=== PATIENT | male | born 2000 | race Caucasian/White ===

== ENCOUNTER 2018-06-25 02:36 | Emergency (ER) | payer OTHER ==
[2018-06-25] MEDS ORDERED: TETRACAINE HCL 0.5% OPH SOLN 4 ML OS ONE (03:42)
[2018-06-25] MEDS ORDERED: BESIFLOXACIN HCL 0.6% OPH SUSP 5 ML BOTTLE OS ONE (04:53)
--- NOTE | 2018-06-25 05:06 | ER Document Report ---
ED General - General Chief Complaint: Eye Problem Stated Complaint: LEFT EYE SWELLING/PAIN Time Seen by Provider: 06/25/18 03:39 Notes: Patient is a 18-year-old male who presents with complaint of pain and irritation to the left eye. Says it started within last 24 hours. He is unsure exactly was calls it. He denies any recent URI symptoms. He denies wearing contacts. He denies excellently scratching his eye that he is aware of. 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 He denies any tachycardia occupation a cause any type of material flying into his eye. He denies any surgeries on his eye. No other complaints at this time. TRAVEL OUTSIDE OF THE [place] IN LAST 30 DAYS: No - Related Data Allergies/Adverse Reactions: No Known Drug Allergies Allergy (Verified 06/25/18 02:41) Past Medical History - Social History Smoking Status: Never Smoker Frequency of alcohol use: None Drug Abuse: None Family History: Reviewed & Not Pertinent Review of Systems - Review of Systems Notes: My Normal Review Basic REVIEW OF SYSTEMS: CONSTITUTIONAL : Denies fever, chills, or sweats. Denies recent illness. EENT: Left eye irritation SKIN: Denies rash or skin lesions. NEUROLOGICAL: Denies altered mental status or loss of consciousness. ALL OTHER SYSTEMS REVIEWED AND NEGATIVE. Physical Exam - Vital signs Vitals: Temp Pulse Resp BP Pulse Ox 97.6 F 74 18 136/97 H 94 06/25/18 02:44 06/25/18 02:44 06/25/18 02:44 06/25/18 02:44 06/25/18 02:44 - Notes Notes: General Appearance: Well nourished, alert, cooperative, no acute distress, no obvious discomfort. Vitals: reviewed, See vital signs table. Head: no swelling or tenderness to the head Eyes: Pupils are equal and reactive to light. He has good extraocular motion of both eyes. Right eye is normal-appearing. Left eye has mild ecchymosis with some erythema of the conjunctival. On fluorescein staining of the left eye he does have a small corneal abrasion at the 3 o'clock position. No dendritic lesions seen. Skin: warm, dry, appropriate color, no rash Neuro: speech clear, oriented x 3, normal affect, responds appropriately to questions. - HEENT Visual acuity- Right eye: 25 Visual acuity- Left eye: 30 Visual acuity- Both eyes: 25 Corrective lenses worn: Yes Course - Re-evaluation Re-evalutation: 06/25/18 05:52 Patient is well-appearing. He has some irritation to his eye but does not appear to be in a lot of pain. Pupils equal and reactive. He does have what appears to be a small corneal abrasion which most likely has resulted in some inflammation of the eye. It could be secondary to infection. There is no clouding of the pupil. There is not a hypopyon. I will place patient on besifloxacin eyedrops. I will refer him to door installer for close follow- up. I encouraged him return to ER if he has increased redness or irritation to the eye or if he has any further concerns. Patient agrees with plan will be discharged home. Dictation of this chart was performed using voice recognition software; therefore, there may be some unintended grammatical errors. - Vital Signs Vital signs: Temp Pulse Resp BP Pulse Ox 97.6 F 74 18 136/97 H 94 06/25/18 02:44 06/25/18 02:44 06/25/18 02:44 06/25/18 02:44 06/25/18 02:44 Discharge - Discharge Clinical Impression: Corneal abrasion Qualifiers: Encounter type: initial encounter Laterality: left Qualified Code(s): S05.02XA - Injury of conjunctiva and corneal abrasion without foreign body, left eye, initial encounter Chemosis of conjunctiva Qualifiers: Laterality: left Qualified Code(s): H11.422 - Conjunctival edema, left eye Condition: Good Additional Instructions: Please place one drop of the besifloxacin eye drops in your left eye three times a day for 7 days. I have written a prescription for a second bottle incase the bottle we gave you here does not last a full [address] Dasilva's office this morning to make a close follow up appointment. Please return to the ER immediately if you develop worsening of your eye pain. Prescriptions: Besifloxacin HCl [Besivance 0.6% Oph Susp 5 ml] 1 drop OP TID #1 bottle Referrals: KATT DASILVA MD [ACTIVE STAFF] - 06/28/18
[2018-06-25] MEDS ORDERED: BESIFLOXACIN HCL 0.6% OPH SUSP 5 ML BOTTLE ONE (05:40)
[2018-06-25 06:19] VITALS: BP 138/94
== END 2018-06-25 06:19 | disposition home or self-care (01) ==
LOC: ER 02:36
DX: S05.02XA Injury of conjunctiva and corneal abrasion without foreign body, left eye, initial encounter (principal); H11.422 Conjunctival edema, left eye; H02.846 Edema of left eye, unspecified eyelid; H57.12 Ocular pain, left eye; X58.XXXA Exposure to other specified factors, initial encounter
CPT/HCPCS: 99282; J3490